=== PATIENT | female | born 1955 | race Caucasian/White ===

== ENCOUNTER → 2016-03-18 | Outpatient (CLI) | payer OTHER ==
--- NOTE | 2016-03-18 17:39 | DX ---
DEXA Bone Mineral Densitometry Clinical Indications: Postmenopausal, history of left wrist fracture, screening for osteoporosis Comparison: November 22, 2013 (low bone density) Technique: Bone Mineral Densitometry (BMD) by Dual Energy X-Ray Absorptiometry (DEXA) was performed utilizing the [employer] scanner. The lumbar spine was evaluated in the AP projection. The bilat eral hips and forearm were evaluated in the AP projection. Vertebral fracture assessment was also pe rformed. AP Lumbar Spine: The L1, L2, L3 and L4 vertebral bodies were evaluated. BMD: 1.065 gm/cm2 T-score: -1.0 SD Z-score: 0.6 SD No significant change. AP Left Hip: Neck BMD: 0.705 gm/cm2 T-score: -2.4 SD Z-score: -0.9 SD Total BMD has significantly decreased by 6.7% AP Right Hip: Total BMD: 0.745 gm/cm2 T-score: -2.1 SD Z-score: -0.8 SD No significant change in total BMD AP Right Forearm, 02/22: BMD: 0.688 gm/cm2 T-score: -2.1 SD Z-score: -1.3 SD No significant change. Vertebral Fracture Assessment: No significant fracture deformity. No prevertebral aortic calcificati on, significant marginal bone spurring, facet arthrosis, or intrinsic vertebral body sclerosis that would effect the accuracy of the lumbar spine BMD measurement. Conclusion: Considering the lowest measured site, the patient has low bone density. The ten year FRAX risk for any major osteoporotic fracture is 15.5% and for a hip fracture is 3.2%. A ccording to the recommendations of the [employer], this patient would be a good candidate for bone strengthening pharmacologic intervention. Any bone loss in this patient is probably related to aging or estrogen deficiency. To prevent osteoporosis and to promote the patient's bone density, the following recommendations shou ld be considered: 1. Pursue a regular regimen of weightbearing and muscle strengthening exercises in order to reduce t he risk of falls and fractures (as tolerated by the patient's general medical condition). 2. Ensure that daily dietary calcium uptake is maximized. 3. Consider checking the serum vitamin D level. Ensure that intake of vitamin D is 600 IU per day (fo r all ages through 70) . 4. Consider follow-up DEXA scan in one year to assess the efficacy of pharmacologic intervention or in 2 years if she follows a conservative approach.
== END ==
LOC: BRMIMAGING 14:59
PROVIDERS: ATTEND Family Medicine
DX: Z13.820 Encounter for screening for osteoporosis (principal); Z78.0 Asymptomatic menopausal state

== ENCOUNTER → 2017-03-02 | Outpatient (CLI) | payer OTHER | LOC: BRMIMAGING 13:46 | PROVIDERS: ATTEND Family Medicine | DX: Z12.31 Encounter for screening mammogram for malignant neoplasm of breast (principal) ==

== ENCOUNTER → 2018-03-07 | Outpatient (CLI) | payer OTHER | LOC: BRMIMAGING 12:33 | PROVIDERS: ATTEND Family Medicine | DX: Z12.31 Encounter for screening mammogram for malignant neoplasm of breast (principal) ==